=== PATIENT | female | born 1975 | race Caucasian/White ===

== ENCOUNTER 2016-12-17 22:54 | Emergency (ER) | payer OTHER ==
[2016-12-17 23:18] LABS: Hematocrit 33.3 % (37.0-47.0); Hemoglobin 11.3 gm/dL (12.5-16.0); Mean Cell Volume 91.2 fl (78-100); Mean Corpuscular Hgb Conc 33.9 g/dl (32-36); Mean Platelet Volume 11.6 fl (6.0-9.5); Neutrophil # 2.8 K/mm3 (1.3-6.0); Neutrophil % 46.9 % (42-75.0); Platelet Count 186 K/mm3 (150-450); Red Blood Count 3.65 M/mm3 (4.2-5.4); Red Cell Distribution Width 11.9 % (11.5-14.0); White Blood Count 5.9 K/mm3 (4.0-10.5)
--- NOTE | 2016-12-17 23:26 | ERNOTE ---
Chest Pain/Cardiac HPI Date of Service: 12/18/16 Chief Complaint: Chest Pain Time Seen by Provider: 12/17/16 23:03 Source: patient Immunizations: IMMUNIZATION HX Immunizations Up to Date Yes History of Influenza Vaccine No Hx Pneumococcal Vaccination No Allergies/Adverse Reactions: Allergies antihistamines Allergy (Intermediate, Uncoded 12/17/16 23:05) hallucinate Home Medications: HOME MEDICATIONS Citalopram Hydrobromide [Citalopram HBr] 10 mg PO DAILY 10/28/14 [Last Taken Unknown] Bupropion HCl [Wellbutrin Sr] 100 mg PO 12/17/16 [Last Taken Unknown] Narrative: This is a 41-year-old female with a history of questionable cardiac disease in her family and smoking who comes to the emergency department complaining of a sharp right-sided chest pain which has been going on since 8 PM. It is not associated with nausea or vomiting not associated with diaphoresis and is associated with mild shortness of breath. The patient thinks maybe the shortness of breath is from anxiety. Sharp pains come and go and last only 10 seconds but she reports a dull aching pain in the same area right mid chest with no radiation. This pain is there all the time. She denies history of heart disease but says that a doctor 2 years ago wanted to have a stress test done on her but her family doctor said she didn't need it. She does not have any swelling in her legs. She does have a strong family history of DVT and PE Review of Systems - Review of Systems Constitutional: Present: no symptoms reported EYE: Present: no symptoms reported ENT: Present: no symptoms reported Respiratory: Present: shortness of breath Cardiology: Present: chest pain Gastrointestinal/Abdominal: Present: no symptoms reported Genitourinary: Present: no symptoms reported Musculoskeletal: Present: no symptoms reported Skin: Present: no symptoms reported Neurological: Present: no symptoms reported Endocrine: Present: no symptoms reported Hematologic/Lymphatic: Present: no symptoms reported Psych: Present: no symptoms reported All Other Systems: All systems neg except as marked - Patient's Past Medical History Patient History - Medical: Depression Patient History - Cardiac/Respiratory: No pertinent hx Patient History - Cancer: No Hx of Cancer Patient History - Surgical Procedures: D & C, Other Patient History - Other: None - Family History Mother Family History - Cardiac/Respiratory: Hypertension Family History - Cancer: Other Father Family History - Cardiac/Respiratory: Hypertension - Social History Abuse History: No History of abuse Psych History: Hx of Depression Smoking Status: Current every day smoker - Immunizations Immunizations Up to Date: Yes Hx Pneumococcal Vaccination: No History of Influenza Vaccine: No Physical Exam - Physical Exam General Appearance: Present: wd/wn, alert, no apparent distress Head Exam: Present: normal inspection, no evidence of injury Eye Exam: Normal inspection: bilateral Ears, Nose, Throat: Present: normal ENT inspection Neck: Present: normal inspection, nontender Respiratory: Present: no respiratory distress, normal breath sounds, chest nontender, lungs clear Cardiovascular/Chest: Present: regular rate, rhythm, no murmur Gastrointestinal/Abdominal: Present: normal bowel sounds, nontender, nondistended, soft Back Exam: Present: normal inspection, normal range of motion, no CVA tenderness , no vertebral tenderness Extremity Exam: Present: normal inspection, non-tender, normal range of motion, no edema Neurological Exam: Present: alert, oriented, normal mood/affect Skin Exam: Present: normal color, warm/dry Lymphatic Exam: Present: no adenopathy ED Progress - Results and Orders Patient's Lab Results:: I have reviewed the patient's lab results. - Vital Signs Patient's Vital Signs:: I have reviewed the patient's vital signs. Vital Signs: Vital Signs 12/17/16 12/17/16 22:58 23:12 Temperature 36.9 C Pulse Rate 62 59 L Respiratory 16 18 Rate Blood Pressure 135/77 134/84 O2 Sat by Pulse 98 100 Oximetry - EKG EKG: other - sinus bradycardia at 58 excited axis at 95 normal intervals patient has inverted T-wave in aVL biphasic T waves in V1 and [address] elevation less than [address] depression in V3 - X-Ray X-Ray #1 X-Ray: chest Interpretation: Interp. by me X-ray Comments: No acute cardiopulmonary disease - Progress/Reassessment Chief Complaint: Chest Pain Progress:: Improved Departure Clinical Impression: Chest pain - Departure Disposition: Home self-care Condition: Good Instructions: Chest Wall Pain, [id number] Additional Instructions: As we discussed the tests and studies we have done here in the emergency department did not show anything specifically wrong. This doesn't mean that you 're not having symptoms nor doesn't mean that there isn't a cause, it only means that our testing for severe or life-threatening diseases here is not able to determine the cause. The pain you're having does not sound like heart pain or lung pain. This sounds like it would be more muscular pain. I want you to call your family doctor, tell them you were seen in the ER, and set up a follow-up appointment. If you develop any new concerning symptoms I want you to return to the ER.
[2016-12-17 23:35] LABS: ALT 16 U/L (19-67); AST 13 U/L (0-48); Albumin * 3.3 gm/dl (3.4-5.0); Alkaline Phosphatase * 37 U/L (50-170); Anion Gap 10.5 mmol/L (6.8-13.8); Bilirubin, Total 0.1 mg/dL (0.0-1.1); Blood Urea Nitrogen 17 mg/dL (3-23); Ca. Corrected For Albumin 8.3 mg/dL (8.4-10.2); Calcium * 8.1 mg/dL (7.9-10.9); Chloride 107 mmol/L (97-106); Glucose * 104 mg/dL (70-110); Potassium 3.5 mmol/L (3.4-4.6); Sodium 142 mmol/L (132-142); Total Protein 6.3 gm/dL (6.2-8.2); Troponin I Less than 0.017 ng/ml (0.00-0.10)
[2016-12-17] MEDS ORDERED: ASPIRIN 81 MG TAB.CHEW PO ONE (23:50)
[2016-12-17] MEDS ORDERED: ASPIRIN 81 MG TAB.CHEW ONE (23:52)
[2016-12-18 03:39] VITALS: BP 118/64
== END 2016-12-18 02:14 | disposition home or self-care (01) ==
LOC: ER 22:54
DX: R07.9 Chest pain, unspecified (principal); F17.200 Nicotine dependence, unspecified, uncomplicated